=== PATIENT | male | born 1945 | race Caucasian/White ===

== ENCOUNTER → 2016-06-16 | Outpatient (CLI) | payer OTHER ==
[~2016-06-16] MED LIST: ASPI325T60 PO; BUPRTAB51 PO; LEVO75TA5 PO; MULT-506 PO; OMEG10007 PO; OXYC-57 PO; PANT40TA PO; TRMCR130WC TOP; VALA500T60 PO; ZOLP5TAB PO
[2016-06-16 13:39] LABS: BASO % 0.4 %; BASO ABS # 0.03 K/uL (0-0.2); COMPLETE YES; EOS % 2.6 %; HEMATOCRIT 45.4 % (42-52); IG% 0.1 %; LYMPH % 31.1 %; LYMPH ABS # 2.18 K/uL (1.2-3.4); MEAN CORPUSCULAR HEMOGLOBIN 31.2 pg (25-34); MEAN PLATELET VOLUME 10.1 fL (7.4-10.4); MONO % 12.3 %; NEUT % 53.5 %; PLATELET COUNT 220 K/uL (130-400); WHITE BLOOD COUNT 7.01 K/uL (4.8-10.8)
[2016-06-16 14:06] LABS: BLOOD UREA NITROGEN 18 mg/dl (7-18); BUN/CREATININE RATIO 14.8 (10-20); CALCIUM 8.8 mg/dl (8.5-10.1); CARBON DIOXIDE 28 mmol/L (21-32); CHLORIDE 105 mmol/L (98-107); CHOLESTEROL 126 mg/dl (0-200); GLUCOSE 100 mg/dl (70-99); POTASSIUM 4.2 mmol/L (3.5-5.1); SODIUM 140 mmol/L (136-145); TRIGLYCERIDES 30 mg/dl (0-150); VERY LOW DENSITY LIPOPROT CALC 6 mg/dl
[2016-06-16 14:08] LABS: ESTIMATED AVERAGE GLUCOSE 123 mg/dl; HA1C FLAG Normal (Normal)
[2016-06-16 14:16] LABS: CHOLESTEROL/HDL RATIO 2.2; HDL CHOLESTEROL 57 mg/dl; LDL CHOLESTEROL CALCULATED 63 mg/dl
== END | disposition home or self-care (01) ==
LOC: C.LABMFLN 13:30
PROVIDERS: ATTEND Family Medicine
DX: B35.4 Tinea corporis (principal); I10 Essential (primary) hypertension; E78.5 Hyperlipidemia, unspecified; E03.9 Hypothyroidism, unspecified; R73.09 Other abnormal glucose; Z13.220 Encounter for screening for lipoid disorders; Z12.5 Encounter for screening for malignant neoplasm of prostate; R41.3 Other amnesia

== ENCOUNTER → 2016-08-17 | Outpatient (CLI) | payer OTHER ==
[~2016-08-17] MED LIST changes: +ASPI81TA28 PO; +CEPH500C2 PO; +DIPH1TAB87 PO; +FLM4 PO; +HYDR-5688 PO; +NAPR1TAB9 PO
== END | disposition home or self-care (01) ==
LOC: C.LABMFLN 16:39
PROVIDERS: ATTEND Family Medicine
DX: E03.9 Hypothyroidism, unspecified (principal)

== ENCOUNTER → 2016-09-22 | Day surgery (SDC) | payer OTHER ==
[~2016-09-22] VITALS: Ht 175.3 cm; Wt 82.0 kg
[2016-09-22 09:26] VITALS: BP 151/101; PULSE 75; O2SAT 98; Ht 175.3 cm; Wt 82.0 kg
--- NOTE | 2016-09-23 01:36 | TILT TABLE TEST RESULTS ---
REFERRING PHYSICIAN: Saleem Henry MD. CHIEF COMPLAINT: Syncope. PROCEDURE IN DETAIL: The patient presented for tilt table testing, was placed in the supine position. Then normal saline infusion was administered and the patient was secured into place. Continued hemodynamic monitoring with blood pressure, pulse oximetry and telemetry was initiated. The patient was subsequently tilted to 80 degrees for 35 minutes. At the conclusion of the test, the patient was returned to the supine position. Symptoms and hemodynamics were allowed to return to normal prior to discharge. The patient tolerated the procedure well. There were no immediate complications. FINDINGS: 1. Baseline hemodynamics include a blood pressure of 151/101 with a pulse of 72. With head tilting, the patient did not develop any significant hemodynamic changes. There were no symptoms reported during the tilt table test. At the conclusion of the case, the patient's blood pressure is 134/101 with a pulse of 92. IMPRESSION: Normal head up tilt table test without hemodynamic derangement. No symptoms reported. No evidence of vasodepressor or cardioinhibitory response.
== END | disposition home or self-care (01) ==
LOC: C.CATH 09:10
PROVIDERS: ATTEND Family Medicine
DX: R55 Syncope and collapse (principal); N40.0 Benign prostatic hyperplasia without lower urinary tract symptoms; M25.511 Pain in right shoulder; R41.3 Other amnesia; G47.00 Insomnia, unspecified; K59.00 Constipation, unspecified; E03.9 Hypothyroidism, unspecified; F43.20 Adjustment disorder, unspecified; I10 Essential (primary) hypertension; K21.9 Gastro-esophageal reflux disease without esophagitis; E78.5 Hyperlipidemia, unspecified; G62.9 Polyneuropathy, unspecified; G25.81 Restless legs syndrome; Z80.3 Family history of malignant neoplasm of breast; Z83.3 Family history of diabetes mellitus; Z87.891 Personal history of nicotine dependence

== ENCOUNTER → 2016-10-12 | Day surgery (SDC) | payer OTHER ==
[~2016-10-12] VITALS: Ht 177.8 cm; Wt 180.0 kg
[~2016-10-12] MED LIST changes: +ACETAMINOPHEN 325 MG TAB PO PRN; -ASPI81TA28 PO; -CEPH500C2 PO; -DIPH1TAB87 PO; +FENTANYL CITRATE INJ 50 MCG/1 ML 2 ML VIAL ONE; -FLM4 PO; -HYDR-5688 PO; +KEFZOL SPECIAL PROCEDURE STOCK 1 GM ADDVIAL IV ONE; +MIDAZOLAM HCL 5 MG/ML 1 ML VIAL ONE; -NAPR1TAB9 PO
[2016-10-12 14:29] VITALS: BP 139/94; PULSE 70; O2SAT 96; Ht 177.8 cm; Wt 180.0 kg
--- NOTE | 2016-10-12 14:52 | History & Physical Bridge Note ---
H&P Re-Evaluation Bridge Note: I have examined the patient, reviewed the History & Physical and in the interval since the performance of the History & Physical I have noted the following changes of clinical significance: No changes noted
--- NOTE | 2016-10-12 14:52 | Procedure Note ---
Pre-Mod Sedation Assessment General Date of Moderate Sedation: Oct 12, 2016. Vital Signs: Vital Signs Past 12 Hours Date Time Temp Pulse Resp B/P (MAP) Pulse Ox O2 Delivery O2 Flow Rate FiO2 10/12/16 14:29 70 16 139/94 96 Room Air Review Cardiovascular: regular rate, rhythm Abdomen: soft Lungs: lungs clear Airway Class: II Pre-Sedation Airway Assessment Oral Cavity: WNL Short Thick Neck: No Hx of Sleep Apnea: No Smoking Status: Former Smoker Mallampati Classification: Class II ASA Classification: Class II Procedure Planning Contraindications-for Mod Sed: None Yes Notes The planned sedation has been discussed with the patient and consent obtained. I have identified the patient, determined the appropriateness of sedation and have assessed the patient immediately prior to the procedure. All medicine(s) and interventions are by my order.
--- NOTE | 2016-10-12 16:30 | Procedure Note ---
Post-Mod Sedation Assessment General Date of Moderate Sedation Oct 12, 2016. Vital Signs: Vital Signs Past 12 Hours Date Time Temp Pulse Resp B/P (MAP) Pulse Ox O2 Delivery O2 Flow Rate FiO2 10/12/16 16:22 72 18 136/98 (111) 98 Mask 3 10/12/16 14:29 70 16 139/94 96 Room Air Review - Discharge Criteria Vital Signs Stable: Yes Alert/Oriented/Conversant: Yes Returned to Baseline Mental St: Yes Nausea Absent/Minimal: Yes Pain/Discomfort/Absent/Minimal: Yes Normal/Baseline Respirations: Yes Active Bleeding?: No Pt Received D/C Instructions: N/A Prescriptions Given: None Specific Proced. D/C Criteria Distal Pulses Present (Cardiac: Yes Groin site assessed-Card Cath: Yes Voided Prior To Discharge: N/A Discharged Patients Adult Escort/Transportation: N/A
--- NOTE | 2016-10-12 16:32 | [facility] Post Operative Brief Note ---
Immediate Operative Summary Operative Date Oct 12, 2016. Pre-Operative Diagnosis SYNCOPE, RBBB, LAFB Post-Operative Diagnosis SAME Procedure(s) Performed EPS, CAROTID MASSAGE, LINQ INSERTION Surgeon CAITLIN HEATH Sprinkler Fitter Apprentice Surgeon(s) NONE Estimated Blood Loss <5CC Findings SEE OFFICIAL REPORT Fluids (cc crystalloids) 200CC Specimens NONE Drains NONE Anesthesia 4MG VERSED AND 100MCG FENTANYL Complication(s) None Disposition SAME DAY SURGERY
--- NOTE | 2016-10-12 16:36 | Discharge Instructions ---
Discharge Instructions Date of Service Oct 12, 2016. Visit Reason for Visit: Syncope * Discharge Discharge Diagnosis / Problem: RECURRENT SYNCOPE Discharge Goals Goal(s): Improve function Medications Stopped Medications Name(s): NONE Activity Recommendations Activity Limitations: as noted below Lifting Limitations: no more than 10 pounds (FOR 5 DAYS) Shower/Bathe: tomorrow Driving or Machine Use: resume 1 day after discharge Anesthesia . Post Anesthesia Instructions: If you have had General Anesthesia or IV Sedation: * Do not drive today. * Resume driving when surgeon permits. * Do not make important decisions or sign legal documents today. * Call surgeon for: 1. Temperature elevations greater than 101 degrees F. 2. Uncontrollable pain. 3. Excessive bleeding. 4. Persistent nausea and vomiting. 5. Medication intolerance (nausea, vomiting or rash). * For nausea and vomiting use only clear liquids such as: tea, soda, bouillon until nausea subsides, then gradually increase diet as tolerated. * If you have any concerns or questions, call your surgeon's office. If physician is unavailable and it is an emergency, call 911 or go to the nearest emergency room. . Instructions / Follow-Up Instructions / Follow-Up ACTIVITY RECOMMENDATIONS: It is common to feel weak and fatigue for a few days. * Do not drive or operate any motorized equipment for the next day. * Do not lift anything heavier than 10 pounds for the next three days. * Do not engage in vigorous exercise or any sports for the next five days. * You may shower the day after your procedure, but do not immerse the area for three days. Cleanse the site gently with soap and water. SPECIAL CARE INSTRUCTIONS: * You may replace the pressure dressing or band-aid the morning after the procedure. * After your procedure, it is normal to have a small bruise or small lump at the site. Examine your site daily for any change in the bruise or lump, redness, swelling, drainage or numbness. Notify your doctor if any change. BLEEDING: * If there is a small amount of bleeding at the site, lie down and apply firm pressure with a clean cloth for ten minutes. When the bleeding stops, lie quietly keeping the procedure limb straight for six hours. Notify your doctor as soon as possible. * If the bleeding does not stop after ten minutes or if there is a large amount of bleeding or spurting, call 911 immediately. Continue to lie down and hold firm pressure until help arrives. SKIN IRRITATION: * You may experience some redness and/or swelling in the area where radiation was administered. If any skin irritation occurs, please contact your family physician. FOLLOW UP VISIT: Keep any scheduled doctor appointments. Diet Recommendations Recommended Home Diet: resume previous diet Procedures Procedures Performed: EPS, CAROTID MASSAGE, LINQ INSERTION Pending Studies Studies pending at discharge: no Medical Emergencies . Who to Call and When: Medical Emergencies: If at any time you feel your situation is an emergency, please call 911 immediately. . Non-Emergent Contact Non-Emergency issues call your: Puppy Trainer . . "Provider Documentation" section prepared by Traci Alberto. .
[2016-10-12 16:38] VITALS: BP 138/87; PULSE 77; TEMP 36.6; O2SAT 91
[2016-10-12 16:55] VITALS: BP 140/95; PULSE 77; O2SAT 96
--- NOTE | 2016-10-12 17:00 | [facility] Operative Report ---
Operative Report Operative Date Oct 12, 2016. Pre-Operative Diagnosis SYNCOPE, RBBB, LAFB Post-Operative Diagnosis SAME Procedure(s) Performed EPS, CAROTID MASSAGE, LINQ INSERTION Surgeon TRACI ALBERTO Partition Making Machine Operator Surgeon(s) NONE Estimated Blood Loss <5CC Findings DATE OF OPERATION: 10/12/2016 PREOPERATIVE DIAGNOSES: Recurrent syncope, RBBB, LAFB POSTOPERATIVE DIAGNOSES: Same, negative EPS SURGEON: Traci Alberto DO ALTERATION TAILOR: None. ANESTHESIA: Monitored anesthetic care administered by Roel Villatoro under my supervision start time 15:23 end time 16:22; total of 4mg versed and 100mcg fentanyl BLOOD LOSS: <5 mL. COMPLICATIONS: None. CONDITION: Stable. URINE OUTPUT: Not applicable. SPECIMENS: None. FINDINGS: See below. DRAINS: None. IVF: 200cc INDICATIONS FOR PROCEDURE: This is a 70-year-old male who has a past medical history for 2 episodes of syncope unexplained, so far negative work up including TILT auto design checker and normal heart structure by echo, RBBB and LAFB. Other PMH HTN, DM, GERD, depression. Due to recurrent syncope unclear etiology recommended EPS with possible pacemaker implantation vs LINQ insertion depending on results of EPS. CONSENT: Consent was obtained prior to the patient going into the electrophysiology lab. The patient was informed of benefits and alternatives to the procedure. Risks include but not limited to sudden cardiac , cardiac arrhythmias, cerebrovascular accident, myocardial infarction, injury to the blood vessels, chamber of the heart or the tetlin electrical system where she would need permanent pacemaker, bleeding and infection. The patient understood these risks and agreed to go to the procedure as planned. Informed consent was obtained. DESCRIPTION OF THE PROCEDURE: The patient was brought into the electrophysiology lab in a fasting state. She was connected to continuous auto design checker. A timeout was performed to ensure patient's identity and procedure correctly. The patient was prepped and draped over the bilateral groins in normal surgical standard fashion. Monitored conscious sedation was administered under my supervision throughout the case for patient's comfort level. [place] precautions were maintained throughout the procedure. A 10 mL of 1% lidocaine were given in the right femoral groin. Using the modified Seldinger technique, right femoral venous access was obtained and an 6-Mozambican sheath was inserted without any resistance followed by a Hisser quadrapolar catheter positioned into the His bundle region. 6-Mozambican sheath was inserted without any resistance followed by a Jophson quadrapolar catheter positioned into the high right atrium and then moved into the RV apex. EPS was performed with following findings: ME 200ms QRS 128ms QT 390ms SCL 702ms AH 80ms HV 70ms SNRT @ 600ms drive train: 1128ms corrected 428ms SNRT @ 500ms drive train: 1262ms corrected 562ms SNRT @ 400ms drive train; 1128ms corrected 428ms AV wencheback 340ms AVN ERP: </=600/290 and 400/270 Atrial ERP: 600/290 and </= 400/200 RV ERP: 600/250 and 400/270 Carotid massage performed without any change in heart rates The catheters were then removed from the heart and, the sheaths were pulled and manual compression was used to hold to form established hemostasis. The patient was then prepped and draped over the left anterior chest to set up for the LINQ in a normal surgical standard fashion. The patient received 2 grams on ancef before the LINQ insertion. 1% lidocine total of 5cc was given for local anesthesia in the 4th intercostal space to the left sternal border. Then using the LINQ insertion tool kit the LINQ was inserted. The incision was closed with 1 interrupted 4.0 Monocryl stitch followed by a running stitch layer and then dermabond was placed. EQUIPMENT: Reveal LINQ [id number] SN: [id number] Tachy: 150/16 Beats Aaron: 30/4 beats Pause: >3sec IMPRESSION: 1. Negative EPS for any indication for pacemaker 2. RBBB 3. Linq insertion due to recurrent syncope unclear etiology PLAN: Monitor patient after sedation and discharge home. I will see him in the office in 1 month's time. wound check in 1 week in my [place] office Fluids 200CC Specimens NONE Drains NONE Anesthesia 4MG VERSED AND 100MCG FENTANYL Complication(s) None Disposition SAME DAY SURGERY I attest to the content of the Intraoperative Record and any orders documented therein. Any exceptions are noted below.
[2016-10-12 17:25] VITALS: BP 148/99; PULSE 73; O2SAT 97
[2016-10-12 17:55] VITALS: BP 141/88; PULSE 70; TEMP 36.5; O2SAT 98
== END | disposition home or self-care (01) ==
LOC: C.EP 13:34
PROVIDERS: ATTEND Internal Medicine
DX: R55 Syncope and collapse (principal); I44.4 Left anterior fascicular block; I45.10 Unspecified right bundle-branch block; K21.9 Gastro-esophageal reflux disease without esophagitis; F32.9 Major depressive disorder, single episode, unspecified; I10 Essential (primary) hypertension; E11.9 Type 2 diabetes mellitus without complications; I45.2 Bifascicular block; Z79.899 Other long term (current) drug therapy; Z87.891 Personal history of nicotine dependence

== ENCOUNTER 2016-10-25 10:32 | Observation (INO) | payer OTHER ==
[~2016-10-25] VITALS: Ht 175.3 cm; Wt 81.4 kg
[2016-10-25] VITALS (11 sets, daily range): BP systolic 96–157; BP diastolic 57–96; PULSE 61–88; TEMP 36.4–37.1; O2SAT 93–99; Ht 175.3 cm; Wt 81.4 kg
[~2016-10-25 10:32] MED LIST changes: -ACETAMINOPHEN 325 MG TAB PO PRN; -ASPI325T60 PO; -BUPRTAB51 PO; +CEFAZOLIN 1000MG/55 ML D5W IV SCH; -FENTANYL CITRATE INJ 50 MCG/1 ML 2 ML VIAL ONE; -KEFZOL SPECIAL PROCEDURE STOCK 1 GM ADDVIAL IV ONE; -LEVO75TA5 PO; -MIDAZOLAM HCL 5 MG/ML 1 ML VIAL ONE; -MULT-506 PO; -OMEG10007 PO; -OXYC-57 PO; -PANT40TA PO; -TRMCR130WC TOP; -VALA500T60 PO; -ZOLP5TAB PO
--- NOTE | 2016-10-25 10:59 | Procedure Note ---
Pre-Mod Sedation Assessment General Date of Moderate Sedation: Oct 25, 2016. Review Cardiovascular: regular rate, rhythm Abdomen: soft Lungs: lungs clear Airway Class: II Pre-Sedation Airway Assessment Oral Cavity: WNL Able to Visualize Vocal Cords: No Short Thick Neck: No Hx of Sleep Apnea: No Smoking Status: Former Smoker Mallampati Classification: Class II ASA Classification: Class II Procedure Planning Contraindications-for Mod Sed: None Yes Notes The planned sedation has been discussed with the patient and consent obtained. I have identified the patient, determined the appropriateness of sedation and have assessed the patient immediately prior to the procedure. All medicine(s) and interventions are by my order.
[2016-10-25] MEDS ORDERED: CEFAZOLIN SOD 1000MG/55 ML D5W IV ONE (11:23)
[2016-10-25] MEDS ORDERED: MULT-506 PO (11:40)
[2016-10-25] MEDS ORDERED: BUPRTAB51 PO (11:40)
[2016-10-25] MEDS ORDERED: TRMCR130WC TOP (11:40)
[2016-10-25] MEDS ORDERED: ZOLP5TAB PO (11:40)
[2016-10-25] MEDS ORDERED: VALA500T60 PO (11:40)
[2016-10-25] MEDS ORDERED: PANT40TA PO (11:40)
[2016-10-25] MEDS ORDERED: LEVO75TA5 PO (11:40)
[2016-10-25] MEDS ORDERED: OMEG10007 PO (11:40)
[2016-10-25] MEDS ORDERED: LACTATED RINGER'S 1000ML 1,000 ML IV SCH (11:45)
[2016-10-25] MEDS ORDERED: LIDOCAINE HCL 1% 20 ML VIAL ONE (12:27)
[2016-10-25] MEDS ORDERED: BACITRACIN 50000 UNIT VIAL ONE (12:29)
[2016-10-25] MEDS ORDERED: MIDAZOLAM HCL 5 MG/ML 1 ML VIAL ONE (12:50)
[2016-10-25] MEDS ORDERED: FENTANYL CITRATE INJ 50 MCG/1 ML 2 ML VIAL ONE (12:50)
--- NOTE | 2016-10-25 14:13 | Procedure Note ---
Post-Mod Sedation Assessment General Date of Moderate Sedation Oct 25, 2016. Vital Signs: Vital Signs Past 12 Hours Date Time Temp Pulse Resp B/P (MAP) Pulse Ox O2 Delivery O2 Flow Rate FiO2 10/25/16 11:44 37.1 77 18 148/93 (111) 99 Room Air Review - Discharge Criteria Vital Signs Stable: Yes Alert/Oriented/Conversant: Yes Returned to Baseline Mental St: Yes Nausea Absent/Minimal: Yes Pain/Discomfort/Absent/Minimal: Yes Normal/Baseline Respirations: Yes Active Bleeding?: No Pt Received D/C Instructions: N/A Prescriptions Given: None Specific Proced. D/C Criteria Distal Pulses Present (Cardiac: N/A Groin site assessed-Card Cath: N/A Voided Prior To Discharge: N/A Discharged Patients Adult Escort/Transportation: N/A
[2016-10-25] MEDS ORDERED: ZOLPIDEM TARTRATE 5 MG TAB PO PRN (14:15)
[2016-10-25] MEDS ORDERED: ACETAMINOPHEN 325 MG TAB PO PRN (14:15)
[2016-10-25] MEDS ORDERED: OXYCODONE/ACETAMINOPHEN 5-325 TAB PO PRN (14:15)
--- NOTE | 2016-10-25 14:15 | [facility] Post Operative Brief Note ---
Immediate Operative Summary Operative Date Oct 25, 2016. Pre-Operative Diagnosis SYNCOPE, INTERMITTENT CHB Post-Operative Diagnosis SAME Procedure(s) Performed DUAL CHAMBER PACEMAKER WITH PERIPHERAL VENOGRAM Surgeon CAITLIN HEATH Tube Wrapper Surgeon(s) NONE Estimated Blood Loss <10CC Findings NONE Fluids (cc crystalloids) 200CC Specimens NONE Drains NONE Anesthesia 5MG VERSED AND 100MCG FENTANYL Complication(s) None Disposition PCU
[2016-10-25] MEDS ORDERED: IV FLUIDS COMPLETED PRN (14:45)
[2016-10-26] VITALS (8 sets, daily range): BP systolic 112–137; BP diastolic 73–84; PULSE 84–93; TEMP 36.4–37.2; O2SAT 93–97
[2016-10-26] MEDS ORDERED: LEVOTHYROXINE 75 MCG TAB PO SCH (06:00)
--- NOTE | 2016-10-26 06:34 | DIAGNOSTIC IMAGING REPORT ---
CHEST 2 VIEWS ROUTINE CLINICAL HISTORY: EXACT TIME ORDERED Evaluate for pneumothorax and lead placement COMPARISON STUDY: No previous studies for comparison. FINDINGS: Permanent bipolar cardiac pacemaker. No evidence pneumothorax. Lungs are clear. IMPRESSION: No acute process status post bipolar cardiac pacemaker placement. The ventricular lead is slightly medial. Correlation with clinical function is recommended. The above report was generated using voice recognition software. It may contain grammatical, syntax or spelling errors. Electronically signed by: Jw Pham M.D. 10/26/2016 6:33 AM Dictated Date/Time: 10/26/2016 6:32 AM
--- NOTE | 2016-10-26 08:30 | Progress Note ---
Progress Note Date of Service Oct 26, 2016. Progress Note PATIENT'S RV LEAD PULLED BACK-NEEDS TO BE REPOSITIONED TODAY; PT TO BE NPO AND WE WILL ARRANGE FOR PATIENT TO GO FOR LEAD REVISION LATER TODAY
[2016-10-26] MEDS ORDERED: BuPROPion XL 300 MG TABCR PO SCH (09:00)
[2016-10-26] MEDS ORDERED: PANTOprazole SOD 40 MG TAB PO SCH (09:00)
[2016-10-26] MEDS ORDERED: MULTIVITAMIN TAB PO SCH (09:00)
--- NOTE | 2016-10-26 14:49 | History & Physical Bridge Note ---
H&P Re-Evaluation Bridge Note: I have examined the patient, reviewed the History & Physical and in the interval since the performance of the History & Physical I have noted the following changes of clinical significance: Pt had ppm yesterday but on review today RV lead dislodged for lead revision today
--- NOTE | 2016-10-26 14:49 | Procedure Note ---
Pre-Mod Sedation Assessment General Date of Moderate Sedation: Oct 26, 2016. Vital Signs: Vital Signs Past 12 Hours Date Time Temp Pulse Resp B/P (MAP) Pulse Ox O2 Delivery O2 Flow Rate FiO2 10/26/16 12:00 Room Air 10/26/16 11:55 37.2 91 16 112/74 (87) 93 Room Air 10/26/16 08:00 Room Air 10/26/16 07:52 36.7 86 16 118/79 (92) 97 Room Air 10/26/16 05:31 84 20 120/76 (91) 96 Room Air 10/26/16 04:00 Room Air Review Cardiovascular: regular rate, rhythm Abdomen: soft Lungs: lungs clear Airway Class: II Pre-Sedation Airway Assessment Oral Cavity: WNL Able to Visualize Vocal Cords: No Short Thick Neck: No Hx of Sleep Apnea: No Smoking Status: Former Smoker ASA Classification: Class II Procedure Planning Contraindications-for Mod Sed: None Yes Notes The planned sedation has been discussed with the patient and consent obtained. I have identified the patient, determined the appropriateness of sedation and have assessed the patient immediately prior to the procedure. All medicine(s) and interventions are by my order.
[2016-10-26] MEDS ORDERED: BACITRACIN 50000 UNIT VIAL ONE (14:54)
[2016-10-26] MEDS ORDERED: LIDOCAINE HCL 1% 20 ML VIAL ONE (14:54)
[2016-10-26] MEDS ORDERED: KEFZOL SPECIAL PROCEDURE STOCK 1 GM ADDVIAL IV ONE (15:01)
[2016-10-26] MEDS ORDERED: FENTANYL CITRATE INJ 50 MCG/1 ML 2 ML VIAL ONE ×2 (15:07→15:54)
[2016-10-26] MEDS ORDERED: MIDAZOLAM HCL 5 MG/ML 1 ML VIAL ONE (15:07)
--- NOTE | 2016-10-26 16:37 | Procedure Note ---
Post-Mod Sedation Assessment General Date of Moderate Sedation Oct 26, 2016. Vital Signs: Vital Signs Past 12 Hours Date Time Temp Pulse Resp B/P (MAP) Pulse Ox O2 Delivery O2 Flow Rate FiO2 10/26/16 16:30 87 16 134/95 (108) 97 Mask 4 10/26/16 12:00 Room Air 10/26/16 11:55 37.2 91 16 112/74 (87) 93 Room Air 10/26/16 08:00 Room Air 10/26/16 07:52 36.7 86 16 118/79 (92) 97 Room Air 10/26/16 05:31 84 20 120/76 (91) 96 Room Air Review - Discharge Criteria Vital Signs Stable: Yes Alert/Oriented/Conversant: Yes Returned to Baseline Mental St: Yes Nausea Absent/Minimal: Yes Pain/Discomfort/Absent/Minimal: Yes Normal/Baseline Respirations: Yes Active Bleeding?: No Pt Received D/C Instructions: N/A Prescriptions Given: None Specific Proced. D/C Criteria Distal Pulses Present (Cardiac: N/A Groin site assessed-Card Cath: N/A Voided Prior To Discharge: N/A Discharged Patients Adult Escort/Transportation: N/A
--- NOTE | 2016-10-26 16:39 | [facility] Post Operative Brief Note ---
Immediate Operative Summary Operative Date Oct 26, 2016. Pre-Operative Diagnosis LEAD DISLODGEMENT Post-Operative Diagnosis SAME Procedure(s) Performed ATRIAL AND VENTRICULAR PACING LEAD REVISIONS Surgeon CAITLIN HEATH Texturing Machine Fixer Surgeon(s) NONE Estimated Blood Loss <10CC Findings SEE OFFICIAL REPORT Fluids (cc crystalloids) 150CC Specimens NONE Drains NONE Anesthesia 5MG VERSED AND 150MCG FENTATNYL Complication(s) None Disposition PCU
[2016-10-26] MEDS ORDERED: OXYC-57 PO (16:42)
[2016-10-26] MEDS ORDERED: ASPI325T60 PO (16:42)
--- NOTE | 2016-10-26 16:44 | Discharge Instructions ---
Discharge Instructions Date of Service Oct 26, 2016. Admission Reason for Admission: Chb (Complete Heart Block) Discharge Discharge Diagnosis / Problem: INTERMITTENT COMPLETE HEART BLOCK, SYNCOPE, PACING LEAD DISLODGEMENT Discharge Goals Goal(s): Improve function Activity Recommendations Activity Limitations: as noted below Lifting Limitations: no more than 10 pounds (DO NOT LIFT MORE THAN 10 POUNDS WITH THE LEFT ARM FOR 2 WEEKS, DO NOT LIFT YOUR LEFT ELBOW OVER THE LEFT SHOULDER FOR 1 MONTH) Exercise/Sports Limitations: as tolerated Shower/Bathe: tomorrow Driving or Machine Use: resume 1 day after discharge . Instructions / Follow-Up Instructions / Follow-Up ACTIVITY RECOMMENDATIONS: * Do not raise affected arm over head for 4 weeks. SPECIAL CARE INSTRUCTIONS: * If bleeding occurs, apply direct pressure to area for 5 minutes. * Call your doctor if you have severe pain, fever, drainage or bleeding at site. * Keep dressing on and dry for 24 hours then remove. * Keep any scheduled doctor's appointment. * Implant Card - hand held device with website information given. SKIN IRRITATION: * You may experience some redness and/or swelling in the area where radiation was administered. If any skin irritation occurs, please contact your family physician. FOLLOW UP VISIT: Keep any scheduled doctor appointments. Current Hospital Diet Patient's current hospital diet: Regular Diet Discharge Diet Recommended Diet: Regular Diet Procedures Procedures Performed: ATRIAL AND VENTRICULAR PACING LEAD REVISIONS PERMANENT PACEMAKER PERIPHERAL VENOGRAM Pending Studies Studies pending at discharge: no Medical Emergencies . Who to Call and When: Medical Emergencies: If at any time you feel your situation is an emergency, please call 911 immediately. . Non-Emergent Contact Non-Emergency issues call your: [employer] Operations Intelligence Officer . . "Provider Documentation" section prepared by Traci Alberto. . VTE Core Measure Inpt VTE Proph given/why not?: Chaim Haynes
--- NOTE | 2016-10-26 17:21 | DIAGNOSTIC IMAGING REPORT ---
CHEST 1 VW FRONT-NOT PORTABLE CLINICAL HISTORY: 70 years-old Male presenting with POST LEAD REVISION. TECHNIQUE: Portable upright AP view of the chest was obtained. COMPARISON: 10/26/2016. FINDINGS: Left pacer with leads to the right atrium and right ventricular apex. Cardiomediastinal silhouette remarkable for atherosclerosis of the aortic arch. Lungs and pleural spaces clear. Degenerative changes of the glenohumeral joints. Upper abdomen within normal limits. IMPRESSION: 1. No acute cardiopulmonary disease. No pneumothorax. Electronically signed by: Kar Quevedo M.D. 10/26/2016 5:20 PM Dictated Date/Time: 10/26/2016 5:19 PM
--- NOTE | 2016-10-28 07:09 | OPERATIVE REPORT ---
DATE OF OPERATION: 10/25/2016 PREOPERATIVE DIAGNOSES: Syncope, intermittent complete heart block, right bundle branch block, and left anterior fascicular. PROCEDURE: Dual chamber rate responsive permanent pacemaker under fluoroscopic guidance along with peripheral venogram. SURGEON: Traci Alberto DO UPHOLSTERY TECHNICIAN: None. ANESTHESIA: Monitored conscious sedation given under my supervision, administered by Chevy Desai; start time 12:54, end time 14:10, a total of 5 mg of Versed and 100 mcg of fentanyl. INTRAVENOUS FLUIDS: 200 mL. IV CONTRAST: 10 mL. ANTIBIOTICS: Two grams of Ancef. COMPLICATIONS: None. CONDITION: Stable. URINE OUTPUT: Not applicable. SPECIMEN: None. FINDINGS: See below. DRAINS: None. BLOOD LOSS: Less than 10 mL. INDICATION: This is a 70-year-old gentleman with a past medical history of recurrent syncope, right bundle branch block and left anterior fascicular block. He underwent electrophysiology study that was negative for any indication for pacemaker, so he then went and had a link insertion, on the link insertion he was found to have high degree AV block with a 2-3 second pause and so was recommended a pacemaker. CONSENT: Consent was obtained prior to patient going into the electrophysiology lab. The patient was explained the risks, benefits and alternatives to the procedure. Risks include but not limited to sudden cardiac , cardiac arrhythmias, cerebrovascular accident, myocardial infarction, injury to the blood vessel, chamber of the heart, lungs, bleeding or infection. The patient understood these risks and agreed to go ahead with the procedure as planned. Informed consent was obtained. DESCRIPTION OF THE PROCEDURE: The patient was brought into the electrophysiology lab in a fasting state. He was connected to continuous cardiac monitoring. A timeout was performed to ensure patient's identity and procedure correctly. The patient was prepped and draped over the left infraclavicular space in normal surgical standard fashion. Monitored conscious sedation was given throughout the procedure for patient's comfort level. [place] precautions were maintained throughout the procedure. A 10 mL of 1% lidocaine/bupivacaine mixture were given in the left deltopectoral groove. Incision was made in the left deltopectoral groove. Blunt dissection was performed down to identify the cephalic vein; however, none could be identified. A peripheral venogram using 10 mL of IV contrast diluted in 10 mL of saline followed by 20 mL flush was used to identify the axillary vein. Venous access was obtained without any complication. The guidewire was inserted without any resistance. An 8-English sheath was inserted over the guidewire without any resistance. The dilator was removed and a second guidewire was inserted through the sheath to allow for retained venous access. The sheath was removed, flushed and dilator reinserted over it and then the sheath was reinserted over one of the guidewires without any resistance. The guidewire and dilator were removed. The right ventricular pacing lead was then advanced into the right ventricle and positioned into the right ventricular apex. The initial placement had an elevated impedance and no capture, so was repositioned. The second placement had adequate pacing and sensing thresholds and no diaphragmatic stimulation with high output pacing. The 8-English sheath was peeled away and the lead was fixated to the pectoralis muscle using 0 silk suture. A second 8-English sheath was inserted over the retained guidewire without any resistance. The guidewire and dilator were removed. The right atrial pacing lead was then advanced into the right atrium and positioned into the right atrial appendage under fluoroscopic guidance. There was adequate pacing and sensing thresholds and no diaphragmatic stimulation with high output pacing. The sheath was peeled away and lead was fixated to the pectoralis muscle using 0 silk suture. A pacemaker pocket was created using blunt dissection over the pectoralis muscle within the pectoralis fascia. The pocket was flushed with copious amounts of bacitracin saline wash and inspected for hemostasis. The new pulse generator was attached to the leads making sure that the pins were in appropriate position, passed the set screws and the set screws were all tightened. The pulse generator was then placed in the pocket, making sure that the leads were lying flat beneath the device. A stay stitch using 0 silk suture was used to secure the device to the pectoralis muscle. The incision was closed in a 3-layer fashion using a 2-0 Vicryl interrupted suture followed by a 3-0 Vicryl interrupted suture followed by a 4-0 Monocryl running stitch and Dermabond was applied. EQUIPMENT: 1. Pulse generator is a [employer]a DR KVNG Dill A2DR01, serial number [id number]. 2. Right atrial lead, Medtronic 5076-52 cm, serial number [id number]. 3. Right ventricular lead, Medtronic 5076-58 cm, serial number [id number]. INTRAOPERATIVE TESTIN. Right atrial lead: P-wave 3.3 millivolts, impedance 633 ohms, threshold 1 volt at 1.7 milliamps. 2. Right ventricular lead: R-waves 11.6 millivolts, impedance 825 ohms, threshold 0.3 volts at 0.3 milliamps. FINAL PARAMETERS THROUGH THE DEVICE: 1. Right atrial lead: P-wave 3.5 millivolts, impedance 494 ohms, threshold 1 volt at 0.4 milliseconds. 2. Right ventricular lead: R-wave 9.4 millivolts, impedance 608 ohms, threshold 0.5 volts at 0.4 milliseconds. FINAL PARAMETERS: MVP-R 60/130. Right atrial amplitude 3.5 volts, pulse width 0.4 milliseconds, sensitivity 0.3 millivolts. Right ventricular amplitude 3.5 volts, pulse width 0.4 milliseconds, sensitivity 0.9 millivolts. IMPRESSION: Successful implantation of a dual chamber rate responsive permanent pacemaker secondary to syncope due to intermittent complete heart block. PLAN: Monitor patient overnight, 12-lead ECG, continue with home medications. He is not allowed to lift the left elbow over left shoulder for 1 month. He cannot lift more than 10 pounds with the left arm for 2 weeks. He can shower tomorrow, let water run over the incision, do not scrub it. He should follow up in our [place] office with the device and wound check in 7-10 days. I attest to the content of the Intraoperative Record and any orders documented therein. Any exceptions are noted below. KAYLEY
--- NOTE | 2016-10-28 07:09 | OPERATIVE REPORT ---
DATE OF OPERATION: 10/26/2016 PREOPERATIVE DIAGNOSIS: Pacemaker lead dislodgement. POSTOPERATIVE DIAGNOSIS: Same. PROCEDURE: Right ventricular and right atrial pacing lead revision. SURGEON: Dr. Traci Alberto. CREATIVE SPECIALIST: None. ANESTHESIA: Monitored conscious sedation given under my supervision, administered by Missy Alonso. Start time 1511, end time 1630. A total of 5 mg of Versed and 150 mcg of fentanyl. INTRAVENOUS FLUIDS: 150 mL ANTIBIOTICS: 2 grams of Ancef. BLOOD LOSS: Less than 10 mL COMPLICATIONS: None. CONDITION: Stable. URINE OUTPUT: Not applicable. SPECIMENS: None. FINDINGS: See below. DRAINS: None. INDICATIONS: This is a 70-year-old gentleman who had a history of syncope due to intermittent complete heart block as well as underlying right bundle branch block and left anterior fascicular block. He underwent a dual-chamber permanent pacemaker on 10/25/2016 with no complications and adequate pacing and sensing thresholds. However, the following day, the right ventricular lead was not capturing and it had dislodged back, and the right atrial lead, although was working and still in place, it did lose a lot of its slack and seemed to pull back a little bit. For this reason, he was recommended lead revision. CONSENT: Consent was obtained prior to the patient going into electrophysiology lab. The patient was explained the risks, benefits and alternatives to the procedure. Risks include but not limited to sudden cardiac , cardiac arrhythmias, cerebrovascular accident, myocardial infarction, injury to the blood vessels, chamber of the heart, bleeding and infection. The patient understood these risks and agreed to undergo the procedure as planned. Informed consent was obtained. DESCRIPTION OF THE PROCEDURE: The patient was brought into the electrophysiology lab in a fasting state. He was connected to continuous cardiac monitoring. A timeout was performed to ensure the patient's identity and procedure correctly. The patient was prepped and draped over the left infraclavicular space in normal surgical standard fashion. He received prophylactic antibiotics prior to incision. [place] precautions were maintained throughout the procedure. Monitored conscious sedation was given throughout the procedure for the patient's comfort level. 20 mL of 1% lidocaine-bupivacaine mixture were given over the prior surgical incision. Using the T[place], the incision what reopened and blunt dissection was performed down to the pulse generator and the lead suture sleeves. The pacemaker was removed from the pocket and unscrewed from the leads. Then, the sutures holding the right atrial leads were cut and the right atrial lead was freed. The screw tip on the right atrial lead was retracted back, and using a J stylet, the lead was repositioned into the right atrial appendage. There was adequate pacing and sensing thresholds and no diaphragmatic stimulation with high output pacing. A straight stylet was placed also all the way down in the lead and it did not dislodge. The lead was resutured down to the pectoralis muscle using 0 silk ties, and we tucked down the lead and it did not move. I then went to reposition the right ventricular pacing lead. I used a scalpel and cut the sutures holding the suture sleeve. I then retracted the screw and then repositioned the right ventricular lead into the right ventricular apex under fluoroscopic guidance. There was adequate pacing and sensing threshold, and there was no diaphragmatic stimulation with high output pacing. I then sutured the lead back down to the pectoralis muscle. I then placed a pursestring using 2-[address] needle around both leads and the venous puncture site. The pocket was flushed with copious amounts of bacitracin saline wash. The pulse generator was reattached to the leads, making sure that the pins were in appropriate position, passed the set screws. The pulse generator was placed in antibiotic absorbable TYRX envelope and the pulse generator and leads placed in the pocket, making sure that the leads were lying flat beneath the device. A stay stitch was used to secure the pulse generator within the TYRX pouch to the pectoralis muscle using 0 silk suture. The incision was closed in a 3-layer fashion using a 2-0 Vicryl interrupted suture, followed by a 3-0 Vicryl interrupted suture, followed by a 4-0 Monocryl running stitch, and Dermabond was applied. EQUIPMENT: 1. The pulse generator is model #A2DR01, serial #[id number]. 2. The right atrial lead 5076-52, serial #[id number]. 3. The right ventricular lead 5076-58, serial #[id number]. 4. TYRX absorbable antibacterial envelope, lot #[id number]. INTRAOPERATIVE TESTIN. Right atrial lead: P-waves 4.6 millivolts, impedance 597 ohms, threshold 0.5 volts at 0.9 milliamps. 2. Right ventricular lead: R-waves 3.9 millivolts, impedance 750 ohms, threshold 0.75 volts at 0.9 milliamps. FINAL MEASUREMENTS THROUGH THE DEVICE WHEN THE PATIENT WAS SITTING UPRIGHT AFTER THE PROCEDURE: 1. Right atrial lead: P-waves 1.9 millivolts, impedance 513 ohms, threshold 0.5 volts at 0.3 milliseconds. 2. Right ventricular lead: R-waves 4.9 millivolts, impedance 741 ohms, threshold 0.75 volts at 0.4 milliseconds. FINAL PARAMETERS: MVP-R 60/130. Right atrial amplitude 3.5 volts, pulse width 0.4 milliseconds, sensitivity 0.3 millivolts. Right ventricular amplitude 3.5 volts, pulse width 0.4 milliseconds, sensitivity 0.9 millivolts. IMPRESSION: Successful right atrial and right ventricular pacing lead revision secondary to lead dislodgement. PLAN: Monitor patient post-sedation, chest x-ray now. He can continue his home medications. We will put him on aspirin since he is going on a trip. He can be discharged home in a couple hours. He is to follow up in our [place] office in 7-10 days for device and wound check. He is not to lift the left elbow over the left shoulder for 1 month and not to do any heavy lifting more than 10 pounds with the left arm for 2 weeks. I attest to the content of the Intraoperative Record and any orders documented therein. Any exceptions are noted below. KAYLEY
--- NOTE | 2016-11-08 13:23 | Discharge Summary ---
Discharge Summary Date of Service Nov 08, 2016. Discharge Summary Admission Date: Oct 25, 2016 at 14:17 Discharge Date: Oct 26, 2016 Discharge Disposition: Home Principal Diagnosis: intermittent complete heart block Secondary Diagnoses/Problems: syncope rbbb lafb Procedures: dual chamber permanent pacemaker, LINQ removal, pacemaker lead reposition Medication Reconciliation New Medications: Aspirin Buffered (Robert Carb-Mag (Tri-Buffered Aspirin) 1 Tab Tab 81 MG PO DAILY for 30 Days, #30 TAB 1 Refill Oxycodone/Acetaminophen 5MG/325MG (Percocet 5MG/325MG) Tab 1-2 TAB PO Q6H PRN for Pain for 20 Days, #20 TAB PAIN Continued Medications: Bupropion (Wellbutrin-Xl) 300 Mg Tabcr 300 MG PO DAILY, TAB Fish Oil ([place]-3) 1 Ea Cap 1 CAP PO BID, CAP Levothyroxine Sodium (Levothyroxine Sodium) 75 Mcg Tab 1 TAB PO DAILY for 30 Days, #30 TAB 5 Refills Multivitamin (Multivitamin) Tab 1 TAB PO DAILY, TAB Pantoprazole (Protonix) 40 Mg Tab 40 MG PO DAILY, #30 TAB Triamcinolone Acet (Aristocort 0.1%) 90 Appln/30 Gm Cr 1 APPLN TOP BID PRN for Documentation APPLY TWICE DAILY NEEDED Valacyclovir (Valtrex) 500 Mg Tab 500 MG PO BID PRN for Documentation, TAB NEEDED ONLY Zolpidem Tartrate (Ambien) 5 Mg Tab 1 TAB PO HS PRN for Sleep for 30 Days, #30 TAB 2 Refills Admission Information Physical Exam (per Admitting): aaox3, NAD Supple No JVD Nrl S1/S2 no murmur cta b/l no w/r/r soft nt/nd no edema b/l no focal deficits skin intact Hospital Course Pt admitted for elective permanent pacemaker implantation with LINQ removal due to syncope from intermittent complete heart block. Pt underwent procedure without any complications and was monitored overnight. The next morning pacemaker interrogation and CXR revealed the RV pacing lead had dislodged and there was less slack on the RA pacing lead. So pt was brought back to the EP lab and both pacing leads were repositioned with more slack. The patient was monitored post sedation and discharged home later that night. Total time spent on discharge = 30minutes This includes examination of the patient, discharge planning, medication reconciliation, and communication with other providers. Discharge Instructions ACTIVITY RECOMMENDATIONS: * Do not raise affected arm over head for 4 weeks. SPECIAL CARE INSTRUCTIONS: * If bleeding occurs, apply direct pressure to area for 5 minutes. * Call your doctor if you have severe pain, fever, drainage or bleeding at site. * Keep dry for 24 hours. * Keep any scheduled doctor's appointment. * Implant Card - hand held device with website information given. SKIN IRRITATION: * You may experience some redness and/or swelling in the area where radiation was administered. If any skin irritation occurs, please contact your family physician. FOLLOW UP VISIT: Keep any scheduled doctor appointments.
== END 2016-10-26 18:40 | disposition home or self-care (01) ==
LOC: C.ACU 10:32 → ENRESERV 13:50 → C.2T 14:17
PROVIDERS: ADMIT Internal Medicine; ATTEND Internal Medicine
DX: T82.120A Displacement of cardiac electrode, initial encounter (principal); Y83.1 Surgical operation with implant of artificial internal device as the cause of abnormal reaction of the patient, or of later complication, without mention of misadventure at the time of the procedure; I44.2 Atrioventricular block, complete; I45.10 Unspecified right bundle-branch block; K21.9 Gastro-esophageal reflux disease without esophagitis; K22.2 Esophageal obstruction; F32.9 Major depressive disorder, single episode, unspecified; I10 Essential (primary) hypertension; E11.9 Type 2 diabetes mellitus without complications; Z87.891 Personal history of nicotine dependence

== ENCOUNTER → 2016-11-29 | Outpatient (CLI) | payer OTHER ==
[~2016-11-29] MED LIST changes: +ASPI325T60 PO; +BUPRTAB51 PO; -CEFAZOLIN 1000MG/55 ML D5W IV SCH; +LEVO75TA5 PO; +MULT-506 PO; +OMEG10007 PO; +OXYC-57 PO; +PANT40TA PO; +TRMCR130WC TOP; +VALA500T60 PO; +ZOLP5TAB PO
[2016-11-30 07:30] LABS: ESTIMATED AVERAGE GLUCOSE 123 mg/dl; HA1C FLAG Normal (Normal)
== END | disposition home or self-care (01) ==
LOC: C.LABMFLN 16:39
PROVIDERS: ATTEND Family Medicine
DX: I10 Essential (primary) hypertension (principal); E03.9 Hypothyroidism, unspecified; R73.03 Prediabetes

== ENCOUNTER 2017-03-08 05:25 | Observation (INO) | payer OTHER ==
[2017-02-02 13:34] VITALS: BMI 27.0
--- NOTE | 2017-02-02 14:34 | PAT Medication Instructions ---
Service Date Feb 02, 2017. Current Home Medication List Aspirin (Aspirin Ec), 81 MG PO QAM Bupropion (Wellbutrin-Xl), 300 MG PO QAM Diphenhydramine Hcl (Benadryl Allergy), 1 TAB PO QAM Fish Oil ([place]-3), 2 CAP PO QAM Levothyroxine Sodium (Levothyroxine Sodium), 1 TAB PO QAM Multivitamin (Multivitamin), 3 TAB PO QAM Naproxen (Aleve), 220 MG PO UD PRN for Pain Pantoprazole (Protonix), 40 MG PO QAM Tamsulosin HCl (Tamsulosin HCl), 1 CAP PO QAM Triamcinolone Acet (Aristocort 0.1%), 1 APPLN TOP BID PRN for Documentation Valacyclovir (Valtrex), 500 MG PO BID PRN for Documentation Zolpidem Tartrate (Ambien), 1 TAB PO HS PRN for Sleep Medication Instructions For Your Scheduled Surgery - Hold the following medications 2 weeks prior to surgery: Fish Oil ([place]-3), 2 CAP PO QAM - Hold the following medications 7 days prior to surgery PER SURGEON'S INSTRUCTIONS: Aspirin (Aspirin Ec), 81 MG PO QAM - Hold the following medications 24 hours prior to surgery: Triamcinolone Acet (Aristocort 0.1%), 1 APPLN TOP BID PRN for itching - Hold the following medications the morning of surgery: Diphenhydramine Hcl (Benadryl Allergy), 1 TAB PO QAM Multivitamin (Multivitamin), 3 TAB PO QAM Naproxen (Aleve), 220 MG PO UD PRN for Pain (otherwise okay to continue per surgeon) - Take the following medications the morning of surgery with a sip of water OTHERWISE NOTHING TO EAT OR DRINK AFTER MIDNIGHT: Bupropion (Wellbutrin-Xl), 300 MG PO QAM Levothyroxine Sodium (Levothyroxine Sodium), 1 TAB PO QAM Pantoprazole (Protonix), 40 MG PO QAM Tamsulosin HCl (Tamsulosin HCl), 1 CAP PO QAM Valacyclovir (Valtrex), 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
[2017-02-02 15:43] LABS: BASO % 0.6 %; BASO ABS # 0.06 K/uL (0-0.2); COMPLETE YES; EOS % 1.1 %; HEMATOCRIT 44.9 % (42-52); IG% 0.4 %; LYMPH % 20.7 %; LYMPH ABS # 2.16 K/uL (1.2-3.4); MEAN CELL VOLUME 89.4 fL (80-100); MEAN CORPUSCULAR HEMOGLOBIN 31.1 pg (25-34); MEAN CORPUSCULAR HGB CONC 34.7 g/dl (32-36); MONO % 7.5 %; NEUT % 69.7 %; PLATELET COUNT 277 K/uL (130-400); RED BLOOD COUNT 5.02 M/uL (4.7-6.1); WHITE BLOOD COUNT 10.42 K/uL (4.8-10.8)
[2017-02-02 16:13] LABS: CALCIUM 9.4 mg/dl (8.5-10.1); CREATININE 1.17 mg/dl (0.60-1.40); POTASSIUM 4.3 mmol/L (3.5-5.1)
[~2017-03-08] VITALS: Ht 175.3 cm; Wt 83.8 kg
[2017-03-08] VITALS (7 sets, daily range): BP systolic 124–161; BP diastolic 80–97; PULSE 78–83; TEMP 36.4–36.9; O2SAT 92–99; Ht 175.3 cm; Wt 83.8 kg
[~2017-03-08 05:25] MED LIST changes: -ASPI325T60 PO; +ASPI81TA28 PO; +CEFAZOLIN 2000MG IV PUSH 10 ML IV SCH; +DIPH1TAB87 PO; +FLM4 PO; +LACTATED RINGER'S 1000ML 1,000 ML IV SCH; +NAPR1TAB9 PO; -OXYC-57 PO
[2017-03-08] MEDS ORDERED: CEFAZOLIN 2000MG IV PUSH 10 ML IV SCH (06:00)
[2017-03-08] MEDS ORDERED: LIDOCAINE HCL 1% 20 ML VIAL ONE (06:32)
[2017-03-08] MEDS ORDERED: CEFAZOLIN SOD 1 GM VIAL ONE (06:33)
[2017-03-08] MEDS ORDERED: BUPIVACAINE 0.5 % 5 MG/1 ML MPF 30ML VIAL ONE (06:33)
[2017-03-08] MEDS ORDERED: SUCCINYLCHOLINE CHLORIDE 20 MG/ML 10 ML VIAL IV ONE (06:37)
[2017-03-08] MEDS ORDERED: MIDAZOLAM HCL 1 MG/ML 2ML VIAL ONE (06:37)
[2017-03-08] MEDS ORDERED: DEXAMETHASONE SOD INJ 4 MG/ML VIAL ONE (06:37)
[2017-03-08] MEDS ORDERED: EpHEDrine SULFATE INJ 50 MG/ML AMP ONE (06:37)
[2017-03-08] MEDS ORDERED: ONDANSETRON INJ 2 MG/ML 2 ML VIAL ONE (06:37)
[2017-03-08] MEDS ORDERED: GLYCOPYRROLATE INJ 0.2 MG/ML VIAL ONE (06:37)
[2017-03-08] MEDS ORDERED: LIDOCAINE HCL 2% 2 ML VIAL (20MG/ML) ONE (06:37)
[2017-03-08] MEDS ORDERED: PROPOFOL IV EMULSION 10 MG/ML 20 ML VIAL IV ONE ×2 (06:37→07:43)
[2017-03-08] MEDS ORDERED: PHENYLEPHRINE HCL INJ 10 MG/ML VIAL ONE (06:37)
[2017-03-08] MEDS ORDERED: NEOSTIGMINE METHYLSULFATE 5 MG/5 ML SYR ONE (06:37)
[2017-03-08] MEDS ORDERED: FENTANYL CITRATE INJ 50 MCG/1 ML 2 ML VIAL ONE (06:37)
[2017-03-08] MEDS ORDERED: ROCURONIUM BROMIDE 10 MG/ML 5 ML VIAL IV ONE (07:30)
[2017-03-08] MEDS ORDERED: PHENYLEPHRINE 100MCG/ML 5ML SYR ONE (07:42)
--- NOTE | 2017-03-08 08:04 | [facility] Operative Report ---
Operative Report Operative Date Mar 08, 2017. Pre-Operative Diagnosis Inguinal Hernia Post-Operative Diagnosis Inguinal Hernia- Rt, indirect Procedure(s) Performed Right Laparoscopic Inguinal Hernia Repair Surgeon David Chemist Internship Surgeon(s) Rick Tucker PA-C Estimated Blood Loss 10CC Findings indirect defect Specimens A: None per surgeon Anesthesia gen Complication(s) None Disposition Recovery Room / PACU I attest to the content of the Intraoperative Record and any orders documented therein. Any exceptions are noted below.
[2017-03-08] MEDS ORDERED: CEPH500C2 PO ×2 (08:12→08:15)
[2017-03-08] MEDS ORDERED: HYDR-5688 PO (08:12)
--- NOTE | 2017-03-08 08:14 | Discharge Instructions ---
Discharge Instructions Date of Service Mar 08, 2017. Admission Reason for Admission: Right Inguinal Hernia Discharge Discharge Diagnosis / Problem: Rt inguinal hernia Discharge Goals Goal(s): Decrease discomfort, Improve function, Improve disease control Activity Recommendations Activity Limitations: as noted below Lifting Limitations: no more than 25 pounds (for 4 weeks) Exercise/Sports Limitations: until after follow-up appointment May Resume Sexual Activity: when tolerated Shower/Bathe: tomorrow Driving or Machine Use: resume 3 days after discharge . Instructions / Follow-Up Instructions / Follow-Up SPECIAL CARE INSTRUCTIONS: * Cover incisions and change daily for comfort/drainage. may leave uncovered with dermabond * May use ibuprofen for pain as tolerated. * Expect some swelling and bruising. Call your doctor if: * Temperature above 101 degrees * Pain not relieved by pain medicine ordered * There is increased drainage or redness from any incision * You have any unanswered questions or concerns [phone]. FOLLOW UP VISIT: If not already scheduled, please call the office for a follow-up visit. for 2 weeks- no sutures to remove OFFICE PHONE NUMBER: Dr. Hernandez Office Current Hospital Diet Patient's current hospital diet: Regular Diet Discharge Diet Recommended Diet: Regular Diet Procedures Procedures Performed: Right Laparoscopic Inguinal Hernia Repair Pending Studies Studies pending at discharge: no Medical Emergencies . Who to Call and When: Medical Emergencies: If at any time you feel your situation is an emergency, please call 911 immediately. . Non-Emergent Contact Non-Emergency issues call your: Primary Care Provider, Surgeon . "Provider Documentation" section prepared by Raymon Hernandez. . VTE Core Measure Inpt VTE Proph given/why not?: SCD's
[2017-03-08] MEDS ORDERED: HYDROCODONE/ACETAMOPHEN 5/325MG TAB PO PRN ×2 (08:15)
[2017-03-08] MEDS ORDERED: ZOLPIDEM TARTRATE 5 MG TAB PO PRN (08:15)
[2017-03-08] MEDS ORDERED: ONDANSETRON INJ 2 MG/ML 2 ML VIAL IV PRN (08:15)
[2017-03-08] MEDS ORDERED: MoRPHine SULFATE 4 MG/ML 1 ML CARP\\VIAL IV PRN (08:15)
[2017-03-08] MEDS ORDERED: PROMETHAZINE HCL INJ 25 MG in SODIUM CHLORIDE 0.9% 50ML 50 ML IV PRN (08:15)
[2017-03-08] MEDS ORDERED: CEFAZOLIN IV 1,000 MG in DEXTROSE 5% 50ML 50 ML IV SCH (08:15)
[2017-03-08] MEDS ORDERED: MoRPHine SULFATE 2 MG/ML CARP IV PRN (08:15)
--- NOTE | 2017-03-08 08:21 | OPERATIVE REPORT ---
DATE OF OPERATION: 03/08/2017 NAME OF OPERATION: Laparoscopic right inguinal hernia repair. PREOPERATIVE DIAGNOSIS: Right inguinal hernia. POSTOPERATIVE DIAGNOSIS: Same. STAFF SURGEON: Dr. Hernandez. PENCIL MAKER: Rick Tucker PA-C. ANESTHESIA: General. FINDINGS: The patient had an indirect right inguinal hernia which was moderate in size with 2 lipomas and on the left side he had no significant hernia noted. PROCEDURE: The patient was brought in the operating room and placed on the operating table in supine position. His abdomen was prepped and draped in the usual fashion. De Jesus catheter, pneumatic stockings and orogastric tube were placed. Incision was made just below the umbilicus carrying dissection down to the fascia, placing a Veress needle producing pneumoperitoneum. The patient was placed in Trendelenburg position. An 11 mm port was placed at this level and then under visualization, two 5 mm ports placed, 1 lateral right and 1 lateral left. On inspection, the patient did not have a significant left inguinal hernia. He did have a significant right inguinal hernia and on dissection, this was an indirect hernia. The peritoneum was taken down from medial to lateral just above the defect and then the hernia sac reduced with dissection as well as reducing what appeared to be a relatively large lipoma and then a second smaller lipoma. At this point a large piece of 3D max mesh was obtained, placed into the defect, positioned appropriately and then secured above the inguinal ligament using absorbable tacks. The peritoneum was then brought up over the mesh and secured using absorbable tacks. At this point, the pneumoperitoneum was reduced. All ports were removed. The fascia at the umbilicus closed using interrupted 0 Vicryl suture and then the skin reapproximated using subcuticular 4-0 Monocryl and Dermabond. The patient was transferred to recovery room in stable condition. The De Jesus catheter was removed. I attest to the content of the Intraoperative Record and any orders documented therein. Any exception s are noted below.
--- NOTE | 2017-03-08 08:48 | Anesthesiology Progress Note ---
Anesthesia Post Op Note Date & Time Mar 08, 2017 at 08:47 Vital Signs Pain Intensity: 0 Vital Signs Past 12 Hours Date Time Temp Pulse Resp B/P (MAP) Pulse Ox O2 Delivery O2 Flow Rate FiO2 03/08/17 08:45 36.1 77 14 130/93 97 Nasal Cannula 3 03/08/17 08:35 76 18 137/89 97 Nasal Cannula 3 03/08/17 08:25 79 16 135/90 97 Nasal Cannula 3 03/08/17 08:15 77 16 132/91 98 Oxymask 5 03/08/17 08:09 36.2 77 16 135/92 95 Oxymask 10 03/08/17 05:58 36.9 83 18 161/95 (117) 99 Room Air Notes Mental Status: alert / awake / arousable, participated in evaluation Pt Amnestic to Procedure: Yes Nausea / Vomiting: adequately controlled Pain: adequately controlled Airway Patency, RR, SpO2: stable & adequate BP & HR: stable & adequate Hydration State: stable & adequate Anesthetic Complications: no major complications apparent
[2017-03-08] MEDS ORDERED: EpHEDrine SULFATE INJ 50 MG/ML AMP IV PRN (09:00)
[2017-03-08] MEDS ORDERED: IV FLUIDS COMPLETED PRN (09:00)
[2017-03-08] MEDS ORDERED: TAMSULOSIN HCL 0.4 MG CAP PO SCH (09:00)
[2017-03-08] MEDS ORDERED: ATROPINE SULFATE 0.1 MG/ML 5ML SYR IV PRN (09:00)
[2017-03-08] MEDS ORDERED: PROMETHAZINE HCL INJ 12.5 MG in SODIUM CHLORIDE 0.9% 50ML 50 ML IV PRN (10:15)
[2017-03-08] MEDS: BuPROPion XL 300 MG TABCR PO SCH ×2 (10:43→11:04)
[2017-03-08] MEDS: LEVOTHYROXINE 75 MCG TAB PO SCH ×2 (10:43→11:03)
[2017-03-08] MEDS ORDERED: LACTATED RINGER'S 1000ML 1,000 ML IV SCH (11:00)
[2017-03-08] MEDS ORDERED: DOCUSATE SODIUM/SENNA 50/8.6MG TAB PO SCH (11:00)
--- NOTE | 2017-03-08 12:52 | Medical Consult ---
Consultation Date of Consultation: Mar 08, 2017. Attending Physician: Raymon Hernandez M.D. Reason for Consultation: Medical Management History of Present Illness Mr. Purvis is a 71 y/o male with PMHx of Syncopal Episodes S/P Pacer, Presumed DELMY , GERD, BPH, HTN, HLD, Hypothyroidism, and Anxiety/Depression who is S/P R Inguinal Hernia Repair. Patient's pain is well controlled and tolerating diet. Is planning on being discharged home later today. Outpatient records reviewed and EF is 56% and evidence of hypokinetic apical findings in inferior and septal region. HTN controlled and currently a couple elevated readings. Past Medical/Surgical History 1. Syncopal Episodes S/P Pacer 2. 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 Presumed DELMY/Snoring - planned sleep study 4. Anxiety/Depression 5. GERD 6. BPH with LUTS 7. HTN 8. HLD 9. Hypothyroidism Family History Breast Cancer Colon Cancer Diabetes mellitus Social History Smoking Status: Former Smoker Smokeless Tobacco Use: No Alcohol Use: socially Drug Use: none Occupation Status: retired Allergies Coded Allergies: No Known Allergies (Unverified , 03/08/17) Current Inpatient Medications Current Inpatient Medications Medications (Trade) Dose Ordered Sig/Kailee Route Start Time Stop Time Status Last Admin Dose Admin Cefazolin Sodium 10 ml @ 2.5 mls/min PREOP IV 03/08/17 06:00 03/08/17 18:00 03/08/17 06:53 2.5 MLS/MIN Bupropion HCl (Wellbutrin-Xl Tab) 300 mg QAM PO 03/08/17 09:00 04/07/17 08:59 Levothyroxine Sodium (Synthroid Tab) 75 mcg DAILYBB PO 03/08/17 09:00 04/07/17 08:59 Tamsulosin HCl (Flomax Cap) 0.4 mg QAM PO 03/08/17 09:00 04/07/17 08:59 Zolpidem Tartrate (Ambien Tab) 5 mg HS PRN PO 03/08/17 08:15 04/07/17 08:14 Acetaminophen/ Hydrocodone Bitart ([place] 5/325 Tab) 1 tab Q4 PRN PO 03/08/17 08:15 03/22/17 08:14 Acetaminophen/ Hydrocodone Bitart ([place] 5/325 Tab) 2 tab Q4 PRN PO 03/08/17 08:15 03/22/17 08:14 Morphine Sulfate (MoRPHine SULFATE INJ) 2 mg Q4H PRN IV 03/08/17 08:15 03/22/17 08:14 Morphine Sulfate (MoRPHine SULFATE INJ) 4 mg Q4H PRN IV 03/08/17 08:15 03/22/17 08:14 Promethazine HCl 25 mg/Sodium Chloride 51 ml @ 204 mls/hr Q6H PRN IV 03/08/17 08:15 04/07/17 08:14 Ondansetron HCl (Zofran Inj) 4 mg Q6H PRN IV 03/08/17 08:15 04/07/17 08:14 Senna/Docusate Sodium (Senokot S Tab) 1 tab BID PO 03/08/17 11:00 04/07/17 10:59 03/08/17 11:04 1 TAB Ephedrine Sulfate (EpHEDrine SULFATE INJ) 5 mg Q5M PRN IV 03/08/17 09:00 03/08/17 14:00 Atropine Sulfate (Atropine Sulfate 0.1MG/Ml Inj) 0.5 mg Q1M PRN IV 03/08/17 09:00 03/08/17 14:00 Miscellaneous (Iv Fluids Completed) 1 ea PRN PRN N/A 03/08/17 09:00 03/08/18 08:59 Promethazine HCl 12.5 mg/Sodium Chloride 50.5 ml @ 204 mls/hr Q6H PRN IV 03/08/17 10:15 04/07/17 10:14 Cefazolin Sodium 1000 mg/Syringe 5 ml @ 1.667 mls/ min Q8H IV 03/08/17 14:00 03/18/17 13:59 Review of Systems Constitutional: No fever, No chills Respiratory: No cough, No shortness of breath Cardiovascular: No chest pain, No palpitations Abdomen: + pain (minimal - incision sites), No nausea, No vomiting, No diarrhea , No constipation Musculoskeletal: No swelling, No calf pain Genitourinary - Male: No dysuria Hematologic / Lymphatic: No abnormal bleeding/bruising, No clotting problems Integumentary: No rash Physical Exam Date Time Temp Pulse Resp B/P (MAP) Pulse Ox O2 Delivery O2 Flow Rate FiO2 03/08/17 11:59 36.4 79 18 152/97 (115) 95 Room Air 03/08/17 11:00 78 18 128/80 (96) 93 Room Air 03/08/17 10:01 78 16 124/80 (95) 93 Room Air 03/08/17 09:30 36.4 78 16 134/80 (98) 94 Room Air 03/08/17 09:00 92 Room Air 03/08/17 09:00 92 Room Air 03/08/17 09:00 36.7 78 17 135/85 (102) 92 Room Air 03/08/17 08:55 76 16 119/76 97 Nasal Cannula 3 03/08/17 08:45 36.1 77 14 130/93 97 Nasal Cannula 3 03/08/17 08:35 76 18 137/89 97 Nasal Cannula 3 03/08/17 08:25 79 16 135/90 97 Nasal Cannula 3 03/08/17 08:15 77 16 132/91 98 Oxymask 5 03/08/17 08:09 36.2 77 16 135/92 95 Oxymask 10 03/08/17 05:58 36.9 83 18 161/95 (117) 99 Room Air General Appearance: WD/WN, no apparent distress Head: normocephalic, atraumatic Eyes: sclerae normal ENT: hearing grossly normal Neck: supple, no JVD, trachea midline Respiratory/Chest: lungs clear, normal breath sounds, no respiratory distress, no accessory muscle use Cardiovascular: regular rate, rhythm, no gallop, no murmur Abdomen/GI: normal bowel sounds, soft, + pertinent finding (well-approximated 3 surgical incisions - no bleeding at sites) Back: no CVA tenderness Extremities/Musculoskelatal: no pedal edema Neurologic/Psych: alert, oriented x 3 Laboratory Results Last 24 Hours Test 03/08/17 06:37 03/08/17 08:23 Bedside Glucose 110 mg/dl 139 mg/dl Assessment & Plan Patient can continue home medications as previously prescribed. Would defer reinstitution of ASA per surgical team. He is afebrile and pre-operative labs unremarkable. He has had no further syncopal episodes with Pacer placed Recommend patient to have sleep study and reports this is something that is planned Medically optimal for discharge later today pending no acute events.
[2017-03-08] MEDS ORDERED: CEFAZOLIN IV 1,000 MG in SYRINGE 0 ML IV SCH (14:00)
--- NOTE | 2017-03-10 08:49 | DISCHARGE SUMMARY ---
PRIMARY DISCHARGE DIAGNOSIS: Right inguinal hernia. PROCEDURE PERFORMED: Laparoscopic right inguinal hernia repair. HOSPITAL COURSE: The patient is a 71-year-old male with right inguinal hernia, brought in through same day for laparoscopic repair with mesh. The procedure was well tolerated. He was transferred to the surgical floor for observation. He was doing well that afternoon and was tolerating diet and oral analgesics. Incisions were dry. He was stable for discharge. DISCHARGE INSTRUCTIONS: Discharge home. Follow up with Dr. Hernandez in 2 weeks. DISCHARGE MEDICATIONS: Keflex 500 mg p.o. t.i.d. x5 days and [place] 1 tablet every 6 hours as needed. Continue home medications. Aspirin 81 mg daily, Wellbutrin 300 mg daily, Benadryl Allergy 25 mg as needed, omega-3 supplement daily, Synthroid 75 mcg daily, daily multivitamin, Protonix 40 mg daily, Aleve 220 mg daily, Flomax 0.4 mg daily, Aristocort cream as needed, Valtrex 500 mg b.i.d. as needed, and Ambien 5 mg at bedtime as needed.
== END 2017-03-08 15:20 | disposition home or self-care (01) ==
LOC: C.ACU 05:25 → C.MSW 08:08 → ENRESERV 08:45
PROVIDERS: ADMIT Surgery; ATTEND Surgery
DX: K40.90 Unilateral inguinal hernia, without obstruction or gangrene, not specified as recurrent (principal); I10 Essential (primary) hypertension; K21.9 Gastro-esophageal reflux disease without esophagitis; E78.5 Hyperlipidemia, unspecified; E03.9 Hypothyroidism, unspecified; Z95.0 Presence of cardiac pacemaker; G25.81 Restless legs syndrome; G47.30 Sleep apnea, unspecified; Z90.89 Acquired absence of other organs; Z80.3 Family history of malignant neoplasm of breast; Z83.3 Family history of diabetes mellitus; Z80.0 Family history of malignant neoplasm of digestive organs; Z87.891 Personal history of nicotine dependence; Z79.82 Long term (current) use of aspirin; F41.9 Anxiety disorder, unspecified